=== PATIENT | female | born 1955 | race Caucasian/White ===

== ENCOUNTER 2023-05-29 08:57 | Emergency (ER) | payer BC, MEDICARE ==
[~2023-05-29] VITALS: Ht 160 cm; Wt 59.0 kg
[~2023-05-29 08:57] MED LIST: ACYC-129 PO; ALBU18HF2 INH; ASPI81TA52 PO; DIPH25CA83 PO; GABA-532 PO; LOSA1TAB41 PO; ZOLP10TA5 PO
[2023-05-29 10:58] VITALS: BP 142/54; PULSE 61; O2SAT 100
[2023-05-29] MEDS ORDERED: bacitracin 15gm ointment TP STA (11:35)
[2023-05-29] MEDS ORDERED: DOXY-356 PO (11:43)
[2023-05-29] MEDS ORDERED: BACI1PAC7 TP (11:43)
[2023-05-29 12:14] VITALS: RESP 14; TEMP 98.1
== END 2023-05-29 12:16 | disposition home or self-care (01) ==
LOC: ER 08:57
DX: L03.114 Cellulitis of left upper limb (principal); Z79.899 Other long term (current) drug therapy; Z79.82 Long term (current) use of aspirin
CPT/HCPCS: 16000; 99283